=== PATIENT | male | born 1980 | race Caucasian/White ===

== ENCOUNTER 2016-10-11 10:48 | Emergency (ER) | payer BC ==
[~2016-10-11] VITALS: Ht 177.8 cm; Wt 72.7 kg
[2016-10-11] MEDS ORDERED: NEURONTIN300 MG/CAP (10:53)
[2016-10-11] MEDS ORDERED: ACETAMINOPHEN-O1 TAB PO (10:53)
[2016-10-11] MEDS ORDERED: DIAZEPAM10 MG PO (10:54)
[2016-10-11] MEDS ORDERED: CITALOPRAM40 MG PO (10:54)
[2016-10-11] MEDS ORDERED: ACETAMINOPHEN-H1 TA2 PO (10:54)
[2016-10-11 12:51] VITALS: BP 109/68
== END 2016-10-11 12:52 | disposition home or self-care (01) ==
LOC: ED 10:48
DX: S81.812A Laceration without foreign body, left lower leg, initial encounter (principal); Z23 Encounter for immunization; W22.8XXA Striking against or struck by other objects, initial encounter
CPT/HCPCS: 90715; A4550; A4649

== ENCOUNTER → 2018-12-18 | Day surgery (SDC) | payer BC ==
[~2018-12-18] MED LIST: ACETAMINOPHEN-H1 TA2 PO; ACETAMINOPHEN-O1 TAB PO; CITALOPRAM40 MG PO; DIAZEPAM10 MG PO; NEURONTIN300 MG/CAP
== END ==
LOC: MSO 09:17
DX: K92.1 Melena (principal); R10.9 Unspecified abdominal pain; G93.5 Compression of brain; F41.9 Anxiety disorder, unspecified; Z79.899 Other long term (current) drug therapy; Z88.2 Allergy status to sulfonamides; F17.220 Nicotine dependence, chewing tobacco, uncomplicated
CPT/HCPCS: 00811; J2704; J7120

== ENCOUNTER 2020-07-14 18:23 | Emergency (ER) | payer BC ==
[2020-07-14] MEDS ORDERED: SERTRALINE50 MG PO (18:33)
[2020-07-14] MEDS ORDERED: CEPHALEXIN500 M1 PO (20:47)
[2020-07-14 20:55] VITALS: BP 131/79
== END 2020-07-14 20:55 | disposition home or self-care (01) ==
LOC: ED 18:23
DX: S61.317A Laceration without foreign body of left little finger with damage to nail, initial encounter (principal); Z88.2 Allergy status to sulfonamides; W23.1XXA Caught, crushed, jammed, or pinched between stationary objects, initial encounter
CPT/HCPCS: J2270; J2550